=== PATIENT | male | born 1950 | race Caucasian/White ===

== ENCOUNTER 2016-07-21 10:30 | Emergency (ER) | payer MEDICAID ==
[~2016-07-21] VITALS: Wt 80.0 kg
[~2016-07-21 10:30] MED LIST: METF500T4 PO
[2016-07-21] MEDS ORDERED: METF500T4 PO (11:09)
--- NOTE | 2016-07-21 11:15 | ERD ---
ER Documentation Chief Complaint Date/Time DATE: 07/21/16 TIME: 11:13 Chief Complaint here for medication refill for po diabetic medication HPI This 66-year-old male presents requesting a refill for medication as he was diagnosed with diabetes 2 months ago. He is not sure what he is supposed to be taking, but he was prescribed Glucophage 500 mg twice a day according to medical record. He has not seen a primary doctor as advised. He states that is because he does not have a "insurance card". Denies polyuria, polydipsia, chest pain, shortness breath, fevers, vomiting additional symptoms. ROS All systems reviewed and are negative except as per history of present illness. Medications Home Meds Active Scripts Metformin* (Glucophage*) 500 Mg Tab, 500 MG PO BID, #60 TAB Prov:RAJ BENDER MD 07/21/16 Metformin* (Glucophage*) 500 Mg Tab, 500 MG PO BID, #60 TAB Prov:MARVEL KINGSLEY MD 05/23/16 Allergies Allergies: Coded Allergies: No Known Allergy (Unverified , 07/21/16) PMhx/Soc Medical and Surgical Hx: pt denies Surgical Hx Hx Miscellaneous Medical Probl: Yes (DM) Hx Alcohol Use: No Hx Substance Use: No Hx Tobacco Use: No Smoking Status: Former smoker Physical Exam Vitals Vital Signs Date Time Temp Pulse Resp B/P Pulse Ox O2 Delivery O2 Flow Rate FiO2 07/21/16 10:36 98.4 98 20 150/91 98 Physical Exam Const: [] Alert, [id number]. Head: Atraumatic Eyes: Normal Conjunctiva ENT: Normal External Ears, Nose and Mouth. Neck: Full range of motion..~ No meningismus. Resp: Clear to auscultation bilaterally Cardio: Regular rate and rhythm, no murmurs Abd: Soft, non tender, non distended. Normal bowel sounds Skin: No petechiae or rashes Back: No midline or flank tenderness Ext: No cyanosis, or edema Neur: Awake and alert. No appreciable focal neurologic deficits. Psych: Normal Mood and Affect Procedures/MDM Patient presents requesting a refill for Glucophage. He will be referred to local [facility] for primary care the patient was advised of the importance of this. patient should suggest an emergent medical illness further evaluation such as laboratory work was deferred. Departure Diagnosis: Primary Impression: Diabetes Diabetes mellitus type: type 2 Diabetes mellitus complication status: with unspecified complications Diabetes mellitus tank terminal gauger insulin use: without fdc use Qualified Code: E11.8 - Type 2 diabetes mellitus with complication, without long-term current use of insulin Additional Impression: Encounter for medication refill Condition: Stable Patient Instructions: DIABETES, General Info [facility]: [facility] Usted se aranda hecho un examen mdico de control que le indica que no est en jazmin condicin que requiera tratamiento urgente en el Departamento de Emergencia. Un estudio ms profundo y el tratamiento de edward condicin pueden esperar sin ningn riesgo hasta que usted sea atendida/o en el consultorio de edward mdico o jazmin cl triny. Es responsabilidad suya arreglar jazmin nichole para el seguimiento del enrique. MANEJO DE CONDICIONES NO URGENTES EN EL FUTURO 1) Si usted tiene un mdico de atencin primaria: Usted debera llamar a edward mdico de atencin primaria antes de venir al departamento de emergencia. Despus de las horas de consultorio, edward doctor o edward asociado/a est disponible por telfono. El mdico o enfermero de conor en el servicio telefnico puede asesorarle por pat medio para atender el problema, o enrique contrario se puede programar jazmin nichole. 2) Si usted no tiene un mdico de atencin primaria: Llame al mdico o clnica de referencia que aparece abajo daysi las horas de consultorio para hacer jazmin nichole para que le vean. CLINICAS: [facility] [phone] [facility] [phone] [facility] [phone] [facility] [phone] [facility] [phone] [facility] [phone] [address] Additional Instructions: va al clinica para doctor primario. RAJ BENDER MD Jul 21, 2016 11:15
[2016-07-21 11:35] VITALS: BP 136/91; PULSE 92; RESP 18; TEMP 98.3
== END 2016-07-21 11:35 | disposition home or self-care (01) ==
LOC: FTE 10:30
DX: E11.9 Type 2 diabetes mellitus without complications (principal); Z79.84 Long term (current) use of oral hypoglycemic drugs; Z87.891 Personal history of nicotine dependence
CPT/HCPCS: 99281

== ENCOUNTER 2017-04-14 18:24 | Inpatient (IN) | payer MEDICAID ==
[~2017-04-14] VITALS: Ht 167.6 cm; Wt 74.2 kg
[2017-04-14] MEDS ORDERED: SOD CHLORIDE 0.9% 1,000 ML IV STA (18:50)
[2017-04-14] MEDS ORDERED: KETOROLAC 30 MG INJ IV STA (18:50)
--- NOTE | 2017-04-14 19:11 | ERD ---
ER Documentation Chief Complaint Date/Time DATE: 04/14/17 TIME: 19:07 Chief Complaint abscess anal area (PATTY ARANA NP) HPI 67-year-old male presents department with complaints of perianal pain that started today. Patient describes the pain as throbbing pain,6/10 scale, not better or worse with anything. Patient states that he has been having on and off fever and chills. Patient denies any blood in his stool or black stool. (PATTY ARANA NP) ROS All systems reviewed and are negative except as per history of present illness. (PATTY ARANA NP) Medications Home Meds Active Scripts Metformin* (Glucophage*) 500 Mg Tab, 500 MG PO BID, #60 TAB Prov:RAJ BENDER MD 07/21/16 Metformin* (Glucophage*) 500 Mg Tab, 500 MG PO BID, #60 TAB Prov:MARVEL KINGSLEY MD 05/23/16 Allergies Allergies: Coded Allergies: No Known Allergy (Unverified , 04/14/17) PMhx/Soc History of Surgery: No Anesthesia Reaction: No Hx Neurological Disorder: No Hx Respiratory Disorders: No Hx Cardiac Disorders: No Hx Psychiatric Problems: No Hx Miscellaneous Medical Probl: Yes (DM) Hx Alcohol Use: No Hx Substance Use: No Hx Tobacco Use: No Smoking Status: Never smoker (PATTY ARANA NP) FmHx Family History: No coronary disease, No diabetes, No other (PATTY ARANA NP) Physical Exam Vitals Vital Signs Date Time Temp Pulse Resp B/P Pulse Ox O2 Delivery O2 Flow Rate FiO2 04/14/17 18:32 98.3 107 20 126/80 98 (KOFI FITZPATRICK DO) Physical Exam GENERAL: The patient is well developed and appropriate for usual state of health, in no apparent distress. CHEST: Clear to auscultation bilaterally. There are no rales, wheezes or rhonchi. HEART: Regular rate and rhythm. No murmurs, clicks, rubs or gallops. No S3 or S4. ABDOMEN: Soft, nontender and nondistended. Good bowel sounds. No rebound or guarding. No gross peritonitis. No gross organomegaly or masses. No Schultz sign or McBurney point tenderness. BACK: No midline or flank tenderness. EXTREMITIES: Equal pulses bilaterally. There is no peripheral clubbing, cyanosis or edema. No focal swelling or erythema. Full range of motion. Grossly neurovascularly intact. NEURO: Alert and oriented. Cranial nerves 2-12 intact. Motor strength in all 4 extremities with 5/5 strength. Sensation grossly intact. Normal speech and gait. SKIN: There is no apparent rash or petechia. The skin is warm and dry. HEMATOLOGIC AND LYMPHATIC: There is no evidence of excessive bruising or lymphedema. No gross cervical, axillary, or inguinal lymphadenopathy. RECTAL: +tender on 12 oclock of anal area, no fluctuance, noted redness. good rectal tone (PATTY ARANA NP) Result Diagram: 04/14/17190904/14/171909 Results 24 hrs Laboratory Tests Test 04/14/17 19:10 04/14/17 19:45 04/14/17 20:24 04/14/17 22:20 White Blood Count 11.610^3/ul Red Blood Count 5.0510^6/ul Hemoglobin 16.4g/dl Hematocrit 46.8% Mean Corpuscular Volume 92.7fl Mean Corpuscular Hemoglobin 32.5pg Mean Corpuscular Hemoglobin Concent 35.0g/dl Red Cell Distribution Width 12.2% Platelet Count 86825^3/UL Mean Platelet Volume 11.1fl Neutrophils % 80.4% Lymphocytes % 12.0% Monocytes % 6.7% Eosinophils % 0.3% Basophils % 0.3% Nucleated Red Blood Cells % 0.0/100WBC Neutrophils # 9.310^3/ul Lymphocytes # 1.410^3/ul Monocytes # 0.810^3/ul Eosinophils # 0.010^3/ul Basophils # 0.010^3/ul Nucleated Red Blood Cells # 0.010^3/ul Prothrombin Time 12.2Sec Prothrombin Time Ratio 1.0 INR International Normalized Ratio 0.91 Activated Partial Thromboplast Time 23.4Sec Sodium Level 137mmol/L Potassium Level 4.1mmol/L Chloride Level 102mmol/L Carbon Dioxide Level 22mmol/L Anion Gap 17 Blood Urea Nitrogen 23mg/dl Creatinine 1.02mg/dl Glucose Level 392mg/dl Calcium Level 9.5mg/dl Total Bilirubin 0.5mg/dl Direct Bilirubin 0.00mg/dl Indirect Bilirubin 0.5mg/dl Aspartate Amino Transf (AST/SGOT) 24IU/L Alanine Aminotransferase (ALT/SGPT) 35IU/L Alkaline Phosphatase 98IU/L Total Protein 7.9g/dl Albumin 4.5g/dl Globulin 3.40g/dl Albumin/Globulin Ratio 1.32 Lipase 201U/L Urine Color YELLOW Urine Clarity CLEAR Urine pH 5.0 Urine Specific Otley 1.036 Urine Ketones 1+mg/dL Urine Nitrite NEGATIVEmg/dL Urine Bilirubin NEGATIVEmg/dL Urine Urobilinogen NEGATIVEmg/dL Urine Leukocyte Esterase NEGATIVELeu/ul Urine Hemoglobin NEGATIVEmg/dL Urine Glucose 3+mg/dL Urine Total Protein NEGATIVEmg/dl Bedside Glucose 335mg/dL Lactic Acid Level 1.2mmol/L Current Medications Medications (Trade) Dose Ordered Sig/Felisha Route PRN Reason Start Time Stop Time Status Last Admin Dose Admin Sodium Chloride (NS) 1,000 ml @ 1,000 mls/hr Q1H STAT IV 04/14/17 18:50 04/14/17 19:49 DC 04/14/17 19:12 Ketorolac Tromethamine (Toradol) 30 mg ONCE STAT IV 04/14/17 18:50 04/14/17 18:56 DC 04/14/17 19:13 IV Flush 10 ml 10 ml STK-MED ONCE .ROUTE 04/14/17 20:46 04/14/17 20:47 DC 04/14/17 20:56 Sodium Chloride (NS) 100 ml @ ud STK-MED ONCE .ROUTE 04/14/17 20:46 04/14/17 20:47 DC 04/14/17 20:56 Iodixanol 100 ml 100 ml STK-MED ONCE .ROUTE 04/14/17 20:46 04/14/17 20:47 DC 04/14/17 20:57 Piperacillin Sod/ Tazobactam Sod 100 ml @ 200 mls/hr ONCE ONCE IVPB 04/14/17 22:00 04/14/17 22:29 DC 04/14/17 21:55 Piperacillin Sod/ Tazobactam Sod 100 ml @ ud STK-MED ONCE .ROUTE 04/14/17 21:44 04/14/17 21:45 DC Sodium Chloride 1,000 ml @ 1,000 mls/hr Q1H ONCE IV 04/14/17 22:30 04/14/17 23:29 DC 04/14/17 22:27 Sodium Chloride (NS) 500 ml @ 500 mls/hr Q1H ONCE IV 04/14/17 22:30 04/14/17 23:29 DC 04/14/17 22:26 Ondansetron HCl (Zofran Inj) 4 mg BRIDGE ORDER PRN IV NAUSEA AND/OR VOMITING 04/14/17 23:30 04/15/17 23:29 Acetaminophen 650 mg 650 mg ER BRIDGE PRN PO MILD PAIN/FEVER 04/14/17 23:30 04/15/17 23:29 Vancomycin HCl (Vancocin) 250 ml @ 125 mls/hr ONCE IVPB 04/15/17 00:00 04/15/17 01:59 (KOFI FITZPATRICK DO) Results 24 hrs Patient was given medication for pain here in emergency department, after treatment, patient verbalized feeling much better. Patient's pain is improved. Normal saline IV bolus was given here in emergency department for rehydration, patient tolerated IV fluids. (PATTY ARANA NP) Procedures/MDM Medical decision making: Patient symptoms consistent with perianal abscess, it is near the anal ring, necessary for colorectal surgeon for drainage. Patient will be admitted to the hospital, was started on IV antibiotics. Patient will be admitted, Dr. Fitzpatrick will facilitate patient's admission to the hospital. Patient stable at this time, pain is controlled at this time. (PATTY ARANA NP) This gentleman has a perianal abscess is not seen to be amenable to easy ER drainage. Clinically also has sepsis with elevated white count and higher heart rate with a source of infection. The diagnosis of sepsis was not made until 2099 when I arrived to the emergency room and reviewed the patient's laboratories and confirmed the source with CAT scan. Added on vancomycin to his Zosyn as his antibiotic regimen and ordered additional fluids lactate and blood cultures. I also spoke with Dr. Romano will surgically manage the patient. Dr. lainez is admitting. Pain is currently controlled. Critical care time 35 minutes: This includes management of sepsis, chart review , antibiotic selection, treatment and monitoring of significant hyperglycemia, multiple re-evaluations of patient, discussion with surgeon and admitting doctor as well as patient. This does not include any billable procedures. (KOFI FITZPATRICK DO) Departure Diagnosis: Primary Impression: Perianal abscess Additional Impressions: Sepsis Hyperglycemia due to type 2 diabetes mellitus Condition: PATTY Naidu NP Apr 14, 2017 19:11 KOFI FITZPATRICK DO Apr 15, 2017 00:00
[2017-04-14 19:46] LABS: BASOPHILS % 0.3 % (0.0-2.0); EOSINOPHILS % 0.3 % (0.0-7.0); HEMATOCRIT 46.8 % (42.0-52.0); HEMOGLOBIN 16.4 g/dl (14.0-18.0); LYMPHOCYTES # 1.4 10^3/ul (0.8-2.9); MEAN CORPUSCULAR HEMOGLOBIN 32.5 pg (29.0-33.0); MEAN CORPUSCULAR VOLUME 92.7 fl (82.0-101.0); MEAN PLATELET VOLUME 11.1 fl (7.4-10.4); MONOCYTE # 0.8 10^3/ul (0.3-0.9); MONOCYTES % 6.7 % (0.0-11.0); NEUTROPHIL # 9.3 10^3/ul (1.6-7.5); NEUTROPHILS % 80.4 % (39.0-77.0); PLATELET COUNT 173 10^3/UL (140-415); RED BLOOD COUNT 5.05 10^6/ul (4.70-6.10); RED CELL DISTRIBUTION WIDTH 12.2 % (11.5-14.5); WHITE BLOOD COUNT 11.6 10^3/ul (4.8-10.8)
[2017-04-14 20:04] LABS: ADD UMIC NO; UR ASCORBIC ACID NEGATIVE (NEGATIVE); UR BILIRUBIN (Dip) NEGATIVE (NEGATIVE); UR BLOOD (Dip) NEGATIVE (NEGATIVE); UR CLARITY CLEAR (CLEAR); UR COLOR YELLOW (YELLOW); UR GLUCOSE (Dip) 3+ mg/dL (NEGATIVE); UR KETONES (Dip) 1+ mg/dL (NEGATIVE); UR LEUKOCYTE ESTERASE (Dip) NEGATIVE Leu/ul (NEGATIVE); UR NITRITE (Dip) NEGATIVE (NEGATIVE); UR SPECIFIC GRAVITY (Dip) 1.036 (1.003-1.030); UR TOTAL PROTEIN (Dip) NEGATIVE (NEGATIVE); UR UROBILINOGEN (Dip) NEGATIVE (NEGATIVE)
[2017-04-14 20:04] LABS: ALBUMIN 4.5 g/dl (3.3-4.9); ALBUMIN/GLOBULIN RATIO 1.32; BILIRUBIN,INDIRECT 0.5 mg/dl (0-1.1); BILIRUBIN,TOTAL 0.5 mg/dl (0.2-1.3); CALCIUM 9.5 mg/dl (8.4-10.2); CREATININE 1.02 mg/dl (0.61-1.24); POTASSIUM 4.1 mmol/L (3.5-5.1); TOTAL PROTEIN 7.9 g/dl (6.1-8.1)
[2017-04-14] MEDS ORDERED: IODIXANOL LOCM 100 ML BTL ONE (20:46)
[2017-04-14] MEDS ORDERED: SOD CHLORIDE 0.9% 100 ML ONE (20:46)
--- NOTE | 2017-04-14 21:31 | RADRPT ---
PROCEDURE: CT Abdomen and Pelvis with contrast. CLINICAL INDICATION: Abdomen and pelvis pain. Perianal pain. TECHNIQUE: CT scan of the abdomen and pelvis with contrast was performed. The patient was scanned following the uncomplicated intravenous administration of 100 cc of Visipaque 320. Coronal and sag ittal reformatted images were obtained from the axial source images. Images were reviewed on a high- resolution PACS workstation. Total exam DLP is 544.66 mGy-cm. CTDIvol is 9.47 mGy. One or more of the following dose reduction techniques were used: Automated exposure control, adjustment of the mA and/or kV according to patient size, use of iterative reconstruction technique. COMPARISON: None. FINDINGS: The lung bases are normal. There is no pleural effusion. The liver is normal in size and attenuation. There is no focal hepatic lesion. Gallstones are present in the gallbladder. There is no gallbladder wall thickening or fluid around t he gallbladder. The spleen is normal in size. There is no focal splenic lesion. Both adrenals are normal with no enlargement or mass. The pancreas is unremarkable with no mass or evidence of pancreatitis. Both kidneys demonstrate normal contrast enhancement. There is no renal mass or hydronephrosis. The abdominal aorta is not dilated. There is calcification in the aorta consistent with atherosclero sis. There is no retroperitoneal lymphadenopathy or mass. There is no pelvic lymphadenopathy or mass. The bladder and distal ureters are normal. The periappendiceal region is unremarkable with no evidence of appendicitis. The appendix is well se en and appears normal. The bowel and mesentery are normal. There is no free fluid or free gas. There is a fluid collection in the left posterior lupe-anal bernice on measuring 2.5 x 1.7 x 5.5 cm in AP, transverse, and cranial caudal dimensions consistent with an abscess. The osseous structures are unremarkable with no fracture or lytic lesion. IMPRESSION: 1. Gallstones in the gallbladder. No evidence of cholecystitis. 2. Atherosclerosis. 3. Left posterior lupe-annal abscess. RPTAT: QQ .Urbano Giron MD, MD Date Time Electronically viewed and signed by .Urbano Giron MD, on 04/14/2017 21:31 .R/
[2017-04-14] MEDS ORDERED: PIPER-TAZO 3.375 GM IV (PMX) 100 ML ONE (21:44)
[2017-04-14] MEDS ORDERED: PIPER-TAZO 3.375 GM IV (PMX) 100 ML IVPB ONE (22:00)
[2017-04-14] MEDS ORDERED: SOD CHLORIDE 0.9% 500 ML IV ONE (22:30)
[2017-04-14] MEDS ORDERED: SOD CHLORIDE 0.9% 1,000 ML IV ONE (22:30)
[2017-04-14] MEDS ORDERED: ONDANSETRON 4 MG INJ IV PRN (23:30)
[2017-04-14] MEDS ORDERED: ACETAMINOPHEN 325 MG TAB PO PRN (23:30)
[2017-04-14 23:49] LABS: INR 0.91; PARTIAL THROMBOPLASTIN TIME 23.4 Sec (25.0-35.0); PROTIME 12.2 Sec (12.2-14.2)
[2017-04-15] VITALS (16 sets, daily range): BP systolic 98–135; BP diastolic 53–88; PULSE 69–84; RESP 14–20; TEMP 97.6; Ht 167.6 cm; Wt 74.2 kg
[2017-04-15] MEDS ORDERED: VANCOMYCIN 1 GM (PMX) 250 ML IVPB SCH
[2017-04-15] MEDS ORDERED: INSULIN GLARGINE [LANtus] 3 ML PEN SC ONE (01:30)
[2017-04-15] MEDS ORDERED: ACETAMINOPHEN 325 MG TAB PO PRN ×2 (01:30→08:30)
[2017-04-15] MEDS ORDERED: ONDANSETRON 4 MG INJ IV PRN ×3 (01:30→09:00)
[2017-04-15] MEDS ORDERED: morphine 4 MG/ML VIAL IV PRN (01:30)
[2017-04-15] MEDS ORDERED: HYDROCODONE/APAP (5/325) TAB PO PRN ×2 (01:30→08:30)
[2017-04-15] MEDS ORDERED: VANCOMYCIN IV PER PHARMACY XX SCH (01:30)
[2017-04-15] MEDS ORDERED: ACCU-CHEK XX SCH (02:00)
[2017-04-15] MEDS ORDERED: DEXTROSE 50% 50 ML SYRINGE IV PRN ×2 (02:30)
[2017-04-15] MEDS ORDERED: GLUCAGON 1 MG INJ IM PRN (02:30)
[2017-04-15] MEDS ORDERED: GLUCOSE GEL 15 GRAM TUBE BUCCAL PRN (02:30)
[2017-04-15] MEDS ORDERED: GLUCOSE GEL 15 GRAM TUBE PO PRN ×2 (02:30)
[2017-04-15] MEDS ORDERED: INSULIN ASPART [NOVOLOG] 3 ML PEN SC ONE ×3 (05:00→09:00)
--- NOTE | 2017-04-15 06:41 | HP ---
Date/Time of Note Date/Time of Note DATE: 04/15/17 TIME: 06:33 Assessment/Plan VTE Prophylaxis VTE Prophylaxis Intervention: SCD's Lines/Catheters IV Catheter Type (from Nrs): Saline Lock Assessment/Plan Assessment/Plan 1. Left posterior perianal abscess -IV antibiotic -Awaiting surgical evaluation -Pain management 2. Diabetes with hyperglycemia -Check A1c in a.m. -Insulin while in-house with adjustment as needed 3. Cholelithiasis, incidental finding -No sign of cholecystitis HPI/ROS Admit Date/Time Admit Date/Time Apr 15, 2017 at 01:05 Hx of Present Illness This is a 67-year-old male with history of diabetes who presented to the emergency department complaining of rectal pain and fever. He said couple of days ago he noted a"ball" in the perianal area, which has been tender. He also noted clear fluid draining from it. Denied bleeding. When he presented to the ER, CT abdomen pelvis shows left posterior perianal abscess and gallstones without cholecystitis. Labs shows a WBC of 11.6 and a glucose of 392 otherwise the rest of basic labs were within acceptable range. Patient was febrile. PMH/Family/Social Past Medical History Medical History: diabetes Social History Alcohol Use: occasionally Smoking Status: Never smoker Drug Use: none Exam/Review of Systems Vital Signs Vitals Vital Signs Date Time Temp Pulse Resp B/P Pulse Ox O2 Delivery O2 Flow Rate FiO2 04/15/17 00:33 97.8 69 18 135/88 99 Room Air Intake and Output 04/14/17 04/14/17 04/15/17 15:00 23:00 07:00 Intake Total 250 ml Balance 250 ml Exam Constitutional: alert, oriented, well developed Head: atraumatic, normocephalic Eyes: EOMI, PERRL Respiratory: clear to auscultation, normal air movement Cardiovascular: nl pulses, regular rate and rhythm Gastrointestinal: non-tender, soft Extremities: normal pulses Additional Comments There is small swollen area and left perianal area. Tender to touch. No draining pus or bleeding noted. Labs Result Diagram: 04/14/17190904/14/171909 Medications Medications Current Medications Cefepime HCl (Maxipime 1gm/50 ml (Pmx)) 50 ml @ 100 mls/hr Q12 IVPB ; Start at 09:00 Ondansetron HCl (Zofran Inj) 4 mg Q4 PRN IV NAUSEA AND VOMITING ; Start at 01:30 Morphine Sulfate (morphine) 3 mg Q4 PRN IV PAIN; Start 04/15/17 at 01:30 Acetaminophen/ Hydrocodone Bitart ([place] (5/325)) 1 tab Q4 PRN PO MODERATE PAIN ; Start 04/15/17 at 01:30 Acetaminophen (Tylenol Tab) 650 mg Q4 PRN PO FERVER AND PAIN ; Start 04/15/17 at 01:30 Diagnostic Test (Pha) 1 ea 1 ea 02 XX ; Start 04/15/17 at 02:00 Vancomycin HCl/ Sodium Chloride (Vancocin/NS) 250 ml @ 83.333 mls/ hr Q24H IVPB ; Start 04/15/17 at 16:00 Miscellaneous Information 1 ea NOTE XX ; Start 04/15/17 at 02:30 Glucose (Glutose) 15 gm Q15M PRN PO DECREASED GLUCOSE; Start 04/15/17 at 02:30 Glucose (Glutose) 22.5 gm Q15M PRN PO DECREASED GLUCOSE; Start 04/15/17 at 02: 30 Dextrose (D50w Syringe) 25 ml Q15M PRN IV DECREASED GLUCOSE; Start 04/15/17 at 02:30 Dextrose (D50w Syringe) 50 ml Q15M PRN IV DECREASED GLUCOSE; Start 04/15/17 at 02:30 Glucagon (Glucagen) 1 mg Q15M PRN IM DECREASED GLUCOSE; Start 04/15/17 at 02:30 Glucose (Glutose) 15 gm Q15M PRN BUCCAL DECREASED GLUCOSE; Start 04/15/17 at 02 :30 Insulin Glargine (Lantus) 15 unit HS SC ; Start 04/15/17 at 21:00 ALYSSA SALTER MD Apr 15, 2017 06:41
[2017-04-15 06:56] LABS: BASOPHILS % 0.2 % (0.0-2.0); EOSINOPHILS # 0.1 10^3/ul (0.0-0.5); EOSINOPHILS % 0.7 % (0.0-7.0); HEMATOCRIT 40.6 % (42.0-52.0); HEMOGLOBIN 13.7 g/dl (14.0-18.0); LYMPHOCYTES # 1.1 10^3/ul (0.8-2.9); LYMPHOCYTES % 13.6 % (15.0-51.0); MEAN CORPUSCULAR HEMOGLOBIN 32.2 pg (29.0-33.0); MEAN CORPUSCULAR HGB CONC 33.7 g/dl (32.0-37.0); MEAN CORPUSCULAR VOLUME 95.5 fl (82.0-101.0); MEAN PLATELET VOLUME 11.4 fl (7.4-10.4); MONOCYTE # 0.6 10^3/ul (0.3-0.9); MONOCYTES % 7.3 % (0.0-11.0); NEUTROPHIL # 6.4 10^3/ul (1.6-7.5); POSITIVE DIFF @See below; RED BLOOD COUNT 4.25 10^6/ul (4.70-6.10); RED CELL DISTRIBUTION WIDTH 12.3 % (11.5-14.5); WHITE BLOOD COUNT 8.2 10^3/ul (4.8-10.8)
[2017-04-15 07:07] LABS: PLATELET COUNT 127 10^3/UL (140-415)
[2017-04-15 07:28] LABS: ALBUMIN 3.1 g/dl (3.3-4.9); BILIRUBIN,INDIRECT 0.6 mg/dl (0-1.1); BILIRUBIN,TOTAL 0.6 mg/dl (0.2-1.3); CALCIUM 8.2 mg/dl (8.4-10.2); CREATININE 0.81 mg/dl (0.61-1.24); PHOSPHORUS 2.9 mg/dl (2.5-4.9); POTASSIUM 3.9 mmol/L (3.5-5.1); TOTAL PROTEIN 6.2 g/dl (6.1-8.1)
[2017-04-15] MEDS: INSULIN ASPART [NOVOLOG] 3 ML PEN SC SCH ×4 (08:02→12:14)
--- NOTE | 2017-04-15 08:14 | CONS ---
Date/Time of Note Date/Time of Note DATE: 04/15/17 TIME: 08:10 Assessment/Plan Assessment/Plan Additional Assessment/Plan Perirectal abscess I&D of perirectal abscess under IV sedation. All benefits, risks, alternatives discussed in detail. All questions answered. The patient was to proceed Consultation Date/Type/Reason Admit Date/Time Apr 15, 2017 at 01:05 Date of Consultation: Apr 15, 2017 Hx of Present Illness The patient is a 67-year-old male with 3 day history of perirectal pain. His had fevers. He states that he felt a ball around his anus. Due to the fact that his symptoms persisted, he presented to the ER. His workup in the ER is consistent with a perianal abscess. I was called for consultation Past Medical History Medical History: diabetes Past Surgical History Past Surgical Hx: no surgical history Family History Significant Family History: no pertinent family hx Social History Alcohol Use: occasionally Smoking Status: Never smoker Drug Use: none Exam/Review of Systems Vital Signs Vitals Vital Signs Date Time Temp Pulse Resp B/P Pulse Ox O2 Delivery O2 Flow Rate FiO2 04/15/17 07:31 99.0 78 20 124/76 98 04/15/17 00:33 Room Air Intake and Output 04/14/17 04/14/17 04/15/17 15:00 23:00 07:00 Intake Total 250 ml Balance 250 ml Exam Constitutional: alert, well developed Psych: no complaints Neck: supple Respiratory: clear to auscultation Cardiovascular: regular rate and rhythm Gastrointestinal: soft Lymph: nl lymph nodes Results Result Diagram: 04/15/17 0506 04/15/17 0506 Results 24 hrs Laboratory Tests Test 04/14/17 19:10 04/14/17 19:45 04/14/17 20:24 04/14/17 22:20 White Blood Count 11.6 #H Red Blood Count 5.05 Hemoglobin 16.4 Hematocrit 46.8 Mean Corpuscular Volume 92.7 Mean Corpuscular Hemoglobin 32.5 Mean Corpuscular Hemoglobin Concent 35.0 Red Cell Distribution Width 12.2 Platelet Count 173 Mean Platelet Volume 11.1 #H Neutrophils % 80.4 H Lymphocytes % 12.0 L Monocytes % 6.7 Eosinophils % 0.3 Basophils % 0.3 Nucleated Red Blood Cells % 0.0 Neutrophils # 9.3 H Lymphocytes # 1.4 Monocytes # 0.8 Eosinophils # 0.0 Basophils # 0.0 Nucleated Red Blood Cells # 0.0 Prothrombin Time 12.2 Prothrombin Time Ratio 1.0 INR International Normalized Ratio 0.91 Activated Partial Thromboplast Time 23.4 L Sodium Level 137 Potassium Level 4.1 Chloride Level 102 Carbon Dioxide Level 22 Anion Gap 17 H Blood Urea Nitrogen 23 H Creatinine 1.02 Glucose Level 392 H Calcium Level 9.5 Total Bilirubin 0.5 Direct Bilirubin 0.00 Indirect Bilirubin 0.5 Aspartate Amino Transf (AST/SGOT) 24 Alanine Aminotransferase (ALT/SGPT) 35 Alkaline Phosphatase 98 Total Protein 7.9 Albumin 4.5 Globulin 3.40 H Albumin/Globulin Ratio 1.32 Lipase 201 Urine Color YELLOW Urine Clarity CLEAR Urine pH 5.0 Urine Specific [place] 1.036 H Urine Ketones 1+ H Urine Nitrite NEGATIVE Urine Bilirubin NEGATIVE Urine Urobilinogen NEGATIVE Urine Leukocyte Esterase NEGATIVE Urine Hemoglobin NEGATIVE Urine Glucose 3+ H Urine Total Protein NEGATIVE Bedside Glucose 335 H Lactic Acid Level 1.2 Test 04/15/17 00:17 04/15/17 00:53 04/15/17 02:28 04/15/17 02:52 Lactic Acid Level 0.9 1.0 Bedside Glucose 301 H 257 H Test 04/15/17 05:06 04/15/17 05:17 04/15/17 07:49 White Blood Count 8.2 # Red Blood Count 4.25 L Hemoglobin 13.7 L Hematocrit 40.6 L Mean Corpuscular Volume 95.5 Mean Corpuscular Hemoglobin 32.2 Mean Corpuscular Hemoglobin Concent 33.7 Red Cell Distribution Width 12.3 Platelet Count 127 #L Mean Platelet Volume 11.4 H Neutrophils % 78.0 H Lymphocytes % 13.6 L Monocytes % 7.3 Eosinophils % 0.7 Basophils % 0.2 Nucleated Red Blood Cells % 0.0 Neutrophils # 6.4 Lymphocytes # 1.1 Monocytes # 0.6 Eosinophils # 0.1 Basophils # 0.0 Nucleated Red Blood Cells # 0.0 Sodium Level 139 Potassium Level 3.9 Chloride Level 108 Carbon Dioxide Level 28 Anion Gap 7 #L Blood Urea Nitrogen 20 Creatinine 0.81 Glucose Level 252 #H Calcium Level 8.2 L Phosphorus Level 2.9 Magnesium Level 2.0 Total Bilirubin 0.6 Direct Bilirubin 0.00 Indirect Bilirubin 0.6 Aspartate Amino Transf (AST/SGOT) 18 Alanine Aminotransferase (ALT/SGPT) 31 Alkaline Phosphatase 67 Total Protein 6.2 # Albumin 3.1 #L Globulin 3.10 Albumin/Globulin Ratio 1.00 Bedside Glucose 261 H 224 H Imaging Free Text/Dictation PROCEDURE: CT Abdomen and Pelvis with contrast. CLINICAL INDICATION: Abdomen and pelvis pain. Perianal pain. TECHNIQUE: CT scan of the abdomen and pelvis with contrast was performed. The patient was scanned following the uncomplicated intravenous administration of 100 cc of Visipaque 320. Coronal and sagittal reformatted images were obtained from the axial source images. Images were reviewed on a high- resolution PACS workstation. Total exam DLP is 544.66 mGy-cm. CTDIvol is 9.47 mGy. One or more of the following dose reduction techniques were used: Automated exposure control, adjustment of the mA and/or kV according to patient size, use of iterative reconstruction technique. COMPARISON: None. FINDINGS: The lung bases are normal. There is no pleural effusion. The liver is normal in size and attenuation. There is no focal hepatic lesion. Gallstones are present in the gallbladder. There is no gallbladder wall thickening or fluid around the gallbladder. The spleen is normal in size. There is no focal splenic lesion. Both adrenals are normal with no enlargement or mass. The pancreas is unremarkable with no mass or evidence of pancreatitis. Both kidneys demonstrate normal contrast enhancement. There is no renal mass or hydronephrosis. The abdominal aorta is not dilated. There is calcification in the aorta consistent with atherosclerosis. There is no retroperitoneal lymphadenopathy or mass. There is no pelvic lymphadenopathy or mass. The bladder and distal ureters are normal. The periappendiceal region is unremarkable with no evidence of appendicitis. The appendix is well seen and appears normal. The bowel and mesentery are normal. There is no free fluid or free gas. There is a fluid collection in the left posterior lupe-anal region measuring 2.5 x 1.7 x 5.5 cm in AP, transverse, and cranial caudal dimensions consistent with an abscess. The osseous structures are unremarkable with no fracture or lytic lesion. IMPRESSION: 1. Gallstones in the gallbladder. No evidence of cholecystitis. 2. Atherosclerosis. 3. Left posterior lupe-annal abscess. RPTAT: QQ .Urbano Giron MD, Date Time Electronically viewed and signed by .Urbano Giron MD, on 04/14/2017 21:31 .R/ CC: PATTY ARANA WET PROCESS TECHNICIAN Medications Medications Current Medications Cefepime HCl (Maxipime 1gm/50 ml (Pmx)) 50 ml @ 100 mls/hr Q12 IVPB ; Start at 09:00 Ondansetron HCl (Zofran Inj) 4 mg Q4 PRN IV NAUSEA AND VOMITING ; Start at 01:30 Morphine Sulfate (morphine) 3 mg Q4 PRN IV PAIN; Start 04/15/17 at 01:30 Acetaminophen/ Hydrocodone Bitart ([place] (5/325)) 1 tab Q4 PRN PO MODERATE PAIN ; Start 04/15/17 at 01:30 Acetaminophen (Tylenol Tab) 650 mg Q4 PRN PO FERVER AND PAIN ; Start 04/15/17 at 01:30 Diagnostic Test (Pha) 1 ea 1 ea 02 XX ; Start 04/15/17 at 02:00 Vancomycin HCl/ Sodium Chloride (Vancocin/NS) 250 ml @ 83.333 mls/ hr Q24H IVPB ; Start 04/15/17 at 16:00 Miscellaneous Information 1 ea NOTE XX ; Start 04/15/17 at 02:30 Glucose (Glutose) 15 gm Q15M PRN PO DECREASED GLUCOSE; Start 04/15/17 at 02:30 Glucose (Glutose) 22.5 gm Q15M PRN PO DECREASED GLUCOSE; Start 04/15/17 at 02: 30 Dextrose (D50w Syringe) 25 ml Q15M PRN IV DECREASED GLUCOSE; Start 04/15/17 at 02:30 Dextrose (D50w Syringe) 50 ml Q15M PRN IV DECREASED GLUCOSE; Start 04/15/17 at 02:30 Glucagon (Glucagen) 1 mg Q15M PRN IM DECREASED GLUCOSE; Start 04/15/17 at 02:30 Glucose (Glutose) 15 gm Q15M PRN BUCCAL DECREASED GLUCOSE; Start 04/15/17 at 02 :30 Insulin Glargine (Lantus) 15 unit HS SC ; Start 04/15/17 at 21:00 LUZMA COHEN MD Apr 15, 2017 08:14
[2017-04-15] MEDS ORDERED: D5-NS + KCL 20 MEQ 1,000 ML IV SCH (08:15)
[2017-04-15] MEDS ORDERED: MIDAZOLAM 1 MG/ML 2 ML INJ ONE (08:17)
[2017-04-15] MEDS ORDERED: PROPOFOL 20 ML ONE (08:17)
[2017-04-15] MEDS ORDERED: LIDOCAINE 2% (SDV) 5 ML INJ ONE (08:17)
[2017-04-15] MEDS ORDERED: BUPIVACAINE 0.5%/EPI (SDV) 30 ML INJ ONE (08:30)
[2017-04-15] MEDS ORDERED: morphine 2 MG INJ IV PRN (08:30)
[2017-04-15] MEDS ORDERED: BUPIVACAINE 0.5% (SDV) 30 ML INJ ONE (08:30)
[2017-04-15] MEDS: metroNIDAZOLE 500 MG/NS (PMX) 100 ML IVPB SCH ×2 (08:30→14:35)
[2017-04-15] MEDS ORDERED: CIPROFLOXACIN 400MG/D5W 200 ML IVPB SCH (08:30)
[2017-04-15] MEDS ORDERED: POLYMYXIN/BACITRACIN 1L IRRIG IRR ONE (08:35)
[2017-04-15] MEDS ORDERED: METOCLOPRAMIDE 10 MG INJ ONE (08:36)
[2017-04-15] MEDS ORDERED: ONDANSETRON 4 MG INJ ONE (08:36)
--- NOTE | 2017-04-15 08:39 | SIPON ---
Date/Time of Note Date/Time of Note DATE: 04/15/17 TIME: 08:38 Operative Report Preoperative Diagnosis Lupe-anal abscess Postoperative Diagnosis Same Operation/Procedure Performed I & D lupe-anal abscess Surgeon see signature line assistant sales director None Anesthesia: general Estimated blood loss: minimal Transfusion Required none Specimen Cxs Grafts/Implants none Complications none LUZMA COHEN MD Apr 15, 2017 08:38
--- NOTE | 2017-04-15 08:41 | OPR ---
Date/Time of Note Date/Time of Note DATE: 04/15/17 TIME: 08:39 Operative Report Preoperative Diagnosis Perianal abscess Postoperative Diagnosis Same Operation/Procedure Performed Incision and drainage of perianal abscess Surgeon see signature line Textile Conversion Manager None Anesthesia Type: general Anesthesiologist: RAJEEV HAMILTON MD Estimated Blood Loss: minimal Transfusion none Specimen Cultures Grafts/Implants none Complications none Disposition: PACU Indications The patient is a 67-year-old male with a perianal abscess. I discussed the drainage of the perianal abscess with the patient. All benefits, risks, alternatives were discussed in detail. All questions answered. The patient went to proceed. Procedure Description Patient was brought to operative room placed supine on the table. After preop antibiotics and SCDs were applied, an LMA was inserted and the patient was placed in lithotomy position. The perianal area was cleaned, prepped, draped in usual sterile fashion. 20 cc of half percent Marcaine was injected at the 3 and 9 o'clock position in the intersphincteric space. The abscess was easily identified at the 6 o'clock position. It was sized. Cultures were taken. Approximate 100 cc of pus was expressed. The wound was irrigated and packed with one-inch gauze. A dry sterile dressing was applied. The patient tolerated the procedure well, was extubated in the OR, transferred to recovery room stable condition. LUZMA COHEN MD Apr 15, 2017 08:41
[2017-04-15] MEDS ORDERED: HYDROmorphONE (0.2 MG/ML) 10ML SYG IV PRN (09:00)
[2017-04-15] MEDS ORDERED: DIPHENHYDRAMINE 50 MG INJ IV PRN (09:00)
[2017-04-15] MEDS ORDERED: FENTAnyl 50 MCG/ML VIAL IV PRN (09:00)
[2017-04-15] MEDS ORDERED: PROCHLORPERAZINE 10 MG INJ IV PRN (09:00)
[2017-04-15] MEDS ORDERED: CEFEPIME 1GM/50 ML (PMX) 50 ML IVPB SCH (09:00)
--- NOTE | 2017-04-15 09:21 | PN ---
Date/Time of Note Date/Time of Note DATE: 04/15/17 TIME: 09:20 Assessment/Plan VTE Prophylaxis VTE Prophylaxis Intervention: heparin Lines/Catheters IV Catheter Type (from [facility] Peripheral IV Assessment/Plan Problems: (1) Cholelithiasis Status: Chronic Comment: Noted. In the absence of symptoms no indication for surgical intervention Qualifiers: Cholelithiasis location: gallbladder Cholecystitis presence: without cholecystitis Biliary obstruction: without biliary obstruction Qualified Code : K80.20 - Calculus of gallbladder without cholecystitis without obstruction (2) Diabetes mellitus type 2 in nonobese Status: Chronic Comment: He has dextrose in the IV fluids from the OR. I will rotate that out to non-dextrose containing solution put him back on his medications. Please note some of his elevated sugars are due to the infection which has now been drained (3) Perianal abscess Status: Acute Comment: Status post IND in the operating room under anesthesia with intubation Subjective 24 Hr Interval Summary Free Text/Dictation Gentleman who developed a lupe-rectal abscess. Was taken to the operating room this morning for incision and drainage. Please see operative note. Exam/Review of Systems Vital Signs Vitals Vital Signs Date Time Temp Pulse Resp B/P Pulse Ox O2 Delivery O2 Flow Rate FiO2 04/15/17 09:09 82 16 127/81 100 Room Air 04/15/17 09:01 98.2 04/15/17 08:44 8.0 Intake and Output 04/14/17 04/14/17 04/15/17 15:00 23:00 07:00 Intake Total 250 ml Balance 250 ml Exam Respiratory: clear to auscultation, normal air movement Cardiovascular: nl pulses, regular rate and rhythm Results Result Diagram: 04/15/17 0506 04/15/17 0506 Results 24 hrs Laboratory Tests Test 04/14/17 19:10 04/14/17 19:45 04/14/17 20:24 04/14/17 22:20 White Blood Count 11.6 #H Red Blood Count 5.05 Hemoglobin 16.4 Hematocrit 46.8 Mean Corpuscular Volume 92.7 Mean Corpuscular Hemoglobin 32.5 Mean Corpuscular Hemoglobin Concent 35.0 Red Cell Distribution Width 12.2 Platelet Count 173 Mean Platelet Volume 11.1 #H Neutrophils % 80.4 H Lymphocytes % 12.0 L Monocytes % 6.7 Eosinophils % 0.3 Basophils % 0.3 Nucleated Red Blood Cells % 0.0 Neutrophils # 9.3 H Lymphocytes # 1.4 Monocytes # 0.8 Eosinophils # 0.0 Basophils # 0.0 Nucleated Red Blood Cells # 0.0 Prothrombin Time 12.2 Prothrombin Time Ratio 1.0 INR International Normalized Ratio 0.91 Activated Partial Thromboplast Time 23.4 L Sodium Level 137 Potassium Level 4.1 Chloride Level 102 Carbon Dioxide Level 22 Anion Gap 17 H Blood Urea Nitrogen 23 H Creatinine 1.02 Glucose Level 392 H Calcium Level 9.5 Total Bilirubin 0.5 Direct Bilirubin 0.00 Indirect Bilirubin 0.5 Aspartate Amino Transf (AST/SGOT) 24 Alanine Aminotransferase (ALT/SGPT) 35 Alkaline Phosphatase 98 Total Protein 7.9 Albumin 4.5 Globulin 3.40 H Albumin/Globulin Ratio 1.32 Lipase 201 Urine Color YELLOW Urine Clarity CLEAR Urine pH 5.0 Urine Specific [place] 1.036 H Urine Ketones 1+ H Urine Nitrite NEGATIVE Urine Bilirubin NEGATIVE Urine Urobilinogen NEGATIVE Urine Leukocyte Esterase NEGATIVE Urine Hemoglobin NEGATIVE Urine Glucose 3+ H Urine Total Protein NEGATIVE Bedside Glucose 335 H Lactic Acid Level 1.2 Test 04/15/17 00:17 04/15/17 00:53 04/15/17 02:28 04/15/17 02:52 Lactic Acid Level 0.9 1.0 Bedside Glucose 301 H 257 H Test 04/15/17 05:06 04/15/17 05:17 04/15/17 07:49 White Blood Count 8.2 # Red Blood Count 4.25 L Hemoglobin 13.7 L Hematocrit 40.6 L Mean Corpuscular Volume 95.5 Mean Corpuscular Hemoglobin 32.2 Mean Corpuscular Hemoglobin Concent 33.7 Red Cell Distribution Width 12.3 Platelet Count 127 #L Mean Platelet Volume 11.4 H Neutrophils % 78.0 H Lymphocytes % 13.6 L Monocytes % 7.3 Eosinophils % 0.7 Basophils % 0.2 Nucleated Red Blood Cells % 0.0 Neutrophils # 6.4 Lymphocytes # 1.1 Monocytes # 0.6 Eosinophils # 0.1 Basophils # 0.0 Nucleated Red Blood Cells # 0.0 Sodium Level 139 Potassium Level 3.9 Chloride Level 108 Carbon Dioxide Level 28 Anion Gap 7 #L Blood Urea Nitrogen 20 Creatinine 0.81 Glucose Level 252 #H Calcium Level 8.2 L Phosphorus Level 2.9 Magnesium Level 2.0 Total Bilirubin 0.6 Direct Bilirubin 0.00 Indirect Bilirubin 0.6 Aspartate Amino Transf (AST/SGOT) 18 Alanine Aminotransferase (ALT/SGPT) 31 Alkaline Phosphatase 67 Total Protein 6.2 # Albumin 3.1 #L Globulin 3.10 Albumin/Globulin Ratio 1.00 Bedside Glucose 261 H 224 H Medications Medications Current Medications Cefepime HCl (Maxipime 1gm/50 ml (Pmx)) 50 ml @ 100 mls/hr Q12 IVPB ; Start at 09:00 Morphine Sulfate (morphine) 3 mg Q4 PRN IV PAIN; Start 04/15/17 at 01:30 Diagnostic Test (Pha) (Accu-Chek) 1 ea 02 XX ; Start 04/15/17 at 02:00 Miscellaneous Information 1 ea NOTE XX ; Start 04/15/17 at 02:30 Glucose (Glutose) 15 gm Q15M PRN PO DECREASED GLUCOSE; Start 04/15/17 at 02:30 Glucose (Glutose) 22.5 gm Q15M PRN PO DECREASED GLUCOSE; Start 04/15/17 at 02: 30 Dextrose (D50w Syringe) 25 ml Q15M PRN IV DECREASED GLUCOSE; Start 04/15/17 at 02:30 Dextrose (D50w Syringe) 50 ml Q15M PRN IV DECREASED GLUCOSE; Start 04/15/17 at 02:30 Glucagon (Glucagen) 1 mg Q15M PRN IM DECREASED GLUCOSE; Start 04/15/17 at 02:30 Glucose (Glutose) 15 gm Q15M PRN BUCCAL DECREASED GLUCOSE; Start 04/15/17 at 02 :30 Insulin Glargine 15 unit 15 unit HS SC ; Start 04/15/17 at 21:00 Metronidazole 100 ml @ 100 mls/hr Q8 IVPB ; Start 04/15/17 at 08:30 Ciprofloxacin/ Dextrose (Cipro Ivpb) 200 ml @ 200 mls/hr Q12H IVPB ; Start 04/15/17 at 08:30; Stop 04/16/17 at 08:29 Morphine Sulfate (morphine) 2 mg Q2H PRN IV PAIN LEVEL 6-10; Start 04/15/17 at 08:30 Acetaminophen/ Hydrocodone Bitart ([place] (5/325)) 1 tab Q6H PRN PO PAIN LEVEL 6 -10; Start 04/15/17 at 08:30 Acetaminophen (Tylenol Tab) 650 mg Q6H PRN PO PAIN AND OR ELEVATED TEMP; Start 04/15/17 at 08:30 Ondansetron HCl 4 mg 4 mg Q6H PRN IV NAUSEA AND/OR VOMITING; Start 04/15/17 at 08:30 Potassium Chloride/Dextrose/ Sod Cl (D5-NS + KCl 20 Meq) 1,000 ml @ 100 mls/hr Q10H IV ; Start 04/15/17 at 08:15 Enoxaparin Sodium 40 mg 40 mg DAILY@07 SC ; Start 04/16/17 at 07:00 Vancomycin HCl (Vancocin) 250 ml @ 125 mls/hr Q12H IVPB ; Start 04/15/17 at 12: 00 Miscellaneous Information (*Rx Drug Level Order Reminder*) VANCOMYCIN TROUGH AT 1100 ONCE ONCE XX ; Start 04/16/17 at 11:00; Stop 04/16/17 at 11:01 KOFI NATARAJAN MD Apr 15, 2017 09:21
[2017-04-15] MEDS ORDERED: POLYMYXIN/BACITRACIN 1L IRRIG ONE (09:27)
[2017-04-15] MEDS ORDERED: NS + KCL 20 MEQ 1,000 ML IV SCH (09:30)
[2017-04-15] MEDS ORDERED: VANCOMYCIN 1 GM in NS 250 ML IVPB SCH (12:00)
--- NOTE | 2017-04-15 12:18 | DS ---
Date/Time of Note Date/Time of Note DATE: 04/15/17 TIME: 12:15 Discharge Summary Admission/Discharge Info Admit Date/Time Apr 15, 2017 at 01:05 Discharge Date/Time April 15, 2017 Discharge Diagnosis Perirectal abscess Patient Condition: Good Consults General Surgery-Dr. Shanna Romano Procedures Incision and Drainage Perirectal Absess Hx of Present Illness This is a 67-year-old male with history of diabetes who presented to the emergency department complaining of rectal pain and fever. He said couple of days ago he noted a"ball" in the perianal area, which has been tender. He also noted clear fluid draining from it. Denied bleeding. When he presented to the ER, CT abdomen pelvis shows left posterior perianal abscess and gallstones without cholecystitis. Labs shows a WBC of 11.6 and a glucose of 392 otherwise the rest of basic labs were within acceptable range. Patient was febrile. Hospital Course The patient is a 67-year-old male with 3 day history of perirectal pain. His had fevers. He states that he felt a ball around his anus. Due to the fact that his symptoms persisted, he presented to the ER. His workup in the ER is consistent with a perianal abscess. I was called for consultation Patient taken to O.R. and debrided 10 cc abscess without complicatioon and as per Dr. Romano can now be discharged home to follow up in office in 3 days at his office Home Meds Active Scripts Metformin* (Glucophage*) 500 Mg Tab, 500 MG PO BID, #60 TAB Prov:RAJ BENDER MD 07/21/16 Metformin* (Glucophage*) 500 Mg Tab, 500 MG PO BID, #60 TAB Prov:MARVEL KINGSLEY MD 05/23/16 Primary Care Provider Care Physician No Primary Time spent on discharge: > 30 minutes Pending Labs Laboratory Tests Test 04/14/17 19:10 04/14/17 19:45 04/14/17 20:24 04/14/17 22:20 White Blood Count 11.610^3/ul (4.8-10.8) Red Blood Count 5.0510^6/ul (4.70-6.10) Hemoglobin 16.4g/dl (14.0-18.0) Hematocrit 46.8% (42.0-52.0) Mean Corpuscular Volume 92.7fl (82.0-101.0) Mean Corpuscular Hemoglobin 32.5pg (29.0-33.0) Mean Corpuscular Hemoglobin Concent 35.0g/dl (32.0-37.0) Red Cell Distribution Width 12.2% (11.5-14.5) Platelet Count 97892^3/UL (140-415) Mean Platelet Volume 11.1fl (7.4-10.4) Neutrophils % 80.4% (39.0-77.0) Lymphocytes % 12.0% (15.0-51.0) Monocytes % 6.7% (0.0-11.0) Eosinophils % 0.3% (0.0-7.0) Basophils % 0.3% (0.0-2.0) Nucleated Red Blood Cells % 0.0/100WBC (0.0-0.0) Neutrophils # 9.310^3/ul (1.6-7.5) Lymphocytes # 1.410^3/ul (0.8-2.9) Monocytes # 0.810^3/ul (0.3-0.9) Eosinophils # 0.010^3/ul (0.0-0.5) Basophils # 0.010^3/ul (0.0-0.1) Nucleated Red Blood Cells # 0.010^3/ul (0.0-0.0) Prothrombin Time 12.2Sec (12.2-14.2) Prothrombin Time Ratio 1.0 INR International Normalized Ratio 0.91 Activated Partial Thromboplast Time 23.4Sec (25.0-35.0) Sodium Level 137mmol/L (135-144) Potassium Level 4.1mmol/L (3.5-5.1) Chloride Level 102mmol/L (97-110) Carbon Dioxide Level 22mmol/L (21-31) Anion Gap 17 (8-16) Blood Urea Nitrogen 23mg/dl (7-20) Creatinine 1.02mg/dl (0.61-1.24) Glucose Level 392mg/dl (70-220) Calcium Level 9.5mg/dl (8.4-10.2) Total Bilirubin 0.5mg/dl (0.2-1.3) Direct Bilirubin 0.00mg/dl (0.00-0.20) Indirect Bilirubin 0.5mg/dl (0-1.1) Aspartate Amino Transf (AST/SGOT) 24IU/L (15-46) Alanine Aminotransferase (ALT/SGPT) 35IU/L (13-69) Alkaline Phosphatase 98IU/L (42-121) Total Protein 7.9g/dl (6.1-8.1) Albumin 4.5g/dl (3.3-4.9) Globulin 3.40g/dl (1.3-3.2) Albumin/Globulin Ratio 1.32 Lipase 201U/L (23-300) Urine Color YELLOW (YELLOW) Urine Clarity CLEAR (CLEAR) Urine pH 5.0 (5.0-9.0) Urine Specific [place] 1.036 (1.003-1.030) Urine Ketones 1+mg/dL (NEGATIVE) Urine Nitrite NEGATIVEmg/dL (NEGATIVE) Urine Bilirubin NEGATIVEmg/dL (NEGATIVE) Urine Urobilinogen NEGATIVEmg/dL (NEGATIVE) Urine Leukocyte Esterase NEGATIVELeu/ul (NEGATIVE) Urine Hemoglobin NEGATIVEmg/dL (NEGATIVE) Urine Glucose 3+mg/dL (NEGATIVE) Urine Total Protein NEGATIVEmg/dl (NEGATIVE) Bedside Glucose 335mg/dL (70-220) Lactic Acid Level 1.2mmol/L (0.5-2.0) Test 04/15/17 00:17 04/15/17 00:53 04/15/17 02:28 04/15/17 02:52 Lactic Acid Level 0.9mmol/L (0.5-2.0) 1.0mmol/L (0.5-2.0) Bedside Glucose 301mg/dL (70-220) 257mg/dL (70-220) Test 04/15/17 05:06 04/15/17 05:17 04/15/17 07:49 White Blood Count 8.210^3/ul (4.8-10.8) Red Blood Count 4.2510^6/ul (4.70-6.10) Hemoglobin 13.7g/dl (14.0-18.0) Hematocrit 40.6% (42.0-52.0) Mean Corpuscular Volume 95.5fl (82.0-101.0) Mean Corpuscular Hemoglobin 32.2pg (29.0-33.0) Mean Corpuscular Hemoglobin Concent 33.7g/dl (32.0-37.0) Red Cell Distribution Width 12.3% (11.5-14.5) Platelet Count 19978^3/UL (140-415) Mean Platelet Volume 11.4fl (7.4-10.4) Neutrophils % 78.0% (39.0-77.0) Lymphocytes % 13.6% (15.0-51.0) Monocytes % 7.3% (0.0-11.0) Eosinophils % 0.7% (0.0-7.0) Basophils % 0.2% (0.0-2.0) Nucleated Red Blood Cells % 0.0/100WBC (0.0-0.0) Neutrophils # 6.410^3/ul (1.6-7.5) Lymphocytes # 1.110^3/ul (0.8-2.9) Monocytes # 0.610^3/ul (0.3-0.9) Eosinophils # 0.110^3/ul (0.0-0.5) Basophils # 0.010^3/ul (0.0-0.1) Nucleated Red Blood Cells # 0.010^3/ul (0.0-0.0) Sodium Level 139mmol/L (135-144) Potassium Level 3.9mmol/L (3.5-5.1) Chloride Level 108mmol/L (97-110) Carbon Dioxide Level 28mmol/L (21-31) Anion Gap 7 (8-16) Blood Urea Nitrogen 20mg/dl (7-20) Creatinine 0.81mg/dl (0.61-1.24) Glucose Level 252mg/dl (70-220) Hemoglobin A1c % (0-5.9) Calcium Level 8.2mg/dl (8.4-10.2) Phosphorus Level 2.9mg/dl (2.5-4.9) Magnesium Level 2.0mg/dl (1.7-2.5) Total Bilirubin 0.6mg/dl (0.2-1.3) Direct Bilirubin 0.00mg/dl (0.00-0.20) Indirect Bilirubin 0.6mg/dl (0-1.1) Aspartate Amino Transf (AST/SGOT) 18IU/L (15-46) Alanine Aminotransferase (ALT/SGPT) 31IU/L (13-69) Alkaline Phosphatase 67IU/L (42-121) Total Protein 6.2g/dl (6.1-8.1) Albumin 3.1g/dl (3.3-4.9) Globulin 3.10g/dl (1.3-3.2) Albumin/Globulin Ratio 1.00 Bedside Glucose 261mg/dL (70-220) 224mg/dL (70-220) KOFI NATARAJAN MD Apr 15, 2017 12:18
--- NOTE | 2017-04-15 12:19 | PDOCDIS ---
Discharge Instructions DIAGNOSIS Discharge Diagnosis Perirectal abscess; DM2 CONDITION Patient Condition: Good HOME CARE INSTRUCTIONS: Special Diet: Diabetic ACTIVITY: Activity Restrictions: No Restrictions FOLLOW UP/APPOINTMENTS Follow-up Plan Office of Dr. Romano in 3 days SCHOOL/WORK RELEASE May return to School/Work with: With Restrictions KOFI NATARAJAN MD Apr 15, 2017 12:19
[2017-04-15] MEDS ORDERED: SULF1TAB31 PO (12:21)
[2017-04-15] MEDS ORDERED: GLIM1TAB2 PO (12:21)
[2017-04-15] MEDS ORDERED: METF500T4 PO (12:21)
[2017-04-15] MEDS ORDERED: VANCOMYCIN 1.5 GM in SOD CHLORIDE 0.9% 250 ML IVPB SCH (16:00)
[2017-04-15] MEDS ORDERED: metFORMIN 500 MG TAB PO SCH (17:50)
[2017-04-15] MEDS ORDERED: INSULIN GLARGINE [LANtus] 3 ML PEN SC SCH ×2 (21:00)
[2017-04-16] MEDS ORDERED: ENOXAPARIN 40 MG/0.4 ML SYG SC SCH (07:00)
== END 2017-04-15 17:50 | disposition home or self-care (01) | DRG 395 ==
LOC: FTE 18:24 → MS2 04-15 01:05
PROVIDERS: ADMIT Internal Medicine; ATTEND Internal Medicine
PROC: 0D9Q0ZX Drainage of Anus, Open Approach, Diagnostic (ICD-10-PCS; principal; 2017-04-15 08:30)
DX: K61.0 Anal abscess (principal); E11.65 Type 2 diabetes mellitus with hyperglycemia; B96.1 Klebsiella pneumoniae [K. pneumoniae] as the cause of diseases classified elsewhere; B95.1 Streptococcus, group B, as the cause of diseases classified elsewhere; K80.20 Calculus of gallbladder without cholecystitis without obstruction; Z79.4 Long term (current) use of insulin
CPT/HCPCS: 36415; 74177; 80053; 81003; 82962; 83036; 83605; 83690; 83735; 84100; 85025; 85610; 85730; 87040; 87070; 87075; 96365; 96375; J0692; J0744; J1815; J1885; J2250; J2405; J2543; J2765; J3370; J3480; J7030; J7040; J7050; Q9967

== ENCOUNTER 2017-07-30 15:11 | Emergency (ER) | END 2017-07-30 17:35 | disposition home or self-care (01) ==

== ENCOUNTER 2017-09-09 19:52 | Emergency (ER) | END 2017-09-09 20:52 | disposition home or self-care (01) ==

== ENCOUNTER 2017-10-09 10:30 | Emergency (ER) | END 2017-10-09 12:38 | disposition home or self-care (01) ==